=== PATIENT | female | born 1975 | race African-American/Black ===

== ENCOUNTER 2022-06-16 08:41 | Day surgery (SDC) | payer OTHER ==
[2022-06-12 13:53] VITALS: BMI 27.8
[2022-06-16 12:13] VITALS: RESP 16; TEMP 98.2
[2022-06-16 12:16] VITALS: BP 147/90; PULSE 88
== END 2022-06-16 11:40 | disposition home or self-care (01) ==
LOC: FASU-ENDO 08:41
PROVIDERS: ATTEND Internal Medicine Gastroenterology
PROC: 0DJD8ZZ Inspection of Lower Intestinal Tract, Via Natural or Artificial Opening Endoscopic (ICD-10-PCS; principal; 2022-06-16 10:31)
DX: Z12.11 Encounter for screening for malignant neoplasm of colon (principal); Z83.71 Family history of colonic polyps
CPT/HCPCS: 84703